=== PATIENT | female | born 1980 | race Caucasian/White ===

== ENCOUNTER 2018-07-07 00:13 | Outpatient (CLI) | payer OTHER, SELFPAY ==
--- NOTE | 2018-07-07 13:09 | DI.US_ITS ---
SYMPTOMS/DIAGNOSIS: INTRAUTERINE CONTRACEPTIVE DEVICE THREADS LOST, T83.32XA PELVIC ULTRASOUND: Transabdominal and transvaginal examination was performed. The uterus measures 7.3 cm long x 3.6 cm AP x 5.2 cm transverse. The endometrial stripe is within normal limits at .4 cm. Note is made of an intrauterine device in good position within the canal. The right ovary measures 2.8 x 1.3 x 1.8 cm and is grossly unremarkable. There is normal blood flow. No evidence of torsion is present. The left ovary measures 3.7 x 2.8 x 3.2 cm. There are small follicular cysts. The largest measures 2.1 cm. No suspicious solid masses are seen sonographically. There is normal blood flow to the left ovary. No torsion is present. No evidence of free pelvic fluid or hydronephrosis is identified. IMPRESSION: Intrauterine device in good position within the endometrial canal. Otherwise negative examination.
== END 2018-07-07 00:33 ==
PROVIDERS: PCP Family Medicine; Visit Provider Family Medicine
DX: T83.32XA Displacement of intrauterine contraceptive device, initial encounter (principal)
CPT/HCPCS: 76830; 76856

== ENCOUNTER 2018-07-19 00:53 | Outpatient (CLI) | payer OTHER, SELFPAY ==
[2018-07-19] MEDS: Gadoterate meglumine 20 ML VIAL 16 ML IVP (14:33)
--- NOTE | 2018-07-19 14:45 | DI.MRI_ITS ---
SYMPTOMS/DIAGNOSIS: RECURRENT HEADACHE, R51 MRI OF THE BRAIN: Pre and post contrast examination was performed. There are no priors for comparison. There is normal signal in the brain parenchyma. The ventricles are intact. The basilar cisterns are patent. There is no acute midline shift or mass effect. The diffusion weighted images are unremarkable. No evidence of intracranial hemorrhage is present. Following contrast administration no enhancing masses are appreciated. There is a normal flow void present in the [place]. The visualized paranasal sinuses are clear. The orbits and retro-orbital soft tissues are unremarkable. The pituitary gland is unremarkable. IMPRESSION: Negative MRI of the brain.
== END 2018-07-19 01:13 ==
PROVIDERS: PCP Family Medicine; Visit Provider Family Medicine
DX: R51 Headache (principal)
CPT/HCPCS: 70553

== ENCOUNTER 2018-11-10 00:29 | Outpatient (CLI) | payer BC, SELFPAY ==
--- NOTE | 2018-11-10 14:00 | DI.US_ITS ---
Many abnormalities cannot be diagnosed. A normal exam does not exclude a congenital anomaly. Radiology No. LMP: 09/14/18 Exam Date: 11/10/18 [facility] wks days on EDC ([facility]) 06/21/19 Confirmed: HISTORY: AMENORRHEA, N91.2 PREDICTED GESTATIONAL AGE NUMBER 8.1 weeks with a range of 7.1 week to 9.1 weeks. 1 Determined by___1STUS___LMP___HISTORY Info. pertaining to fetus # PLACENTA PRESENTATION Grade Cephalic___ Anterior___Posterior___ Breech____ Right Left Transverse(head right___ Fundal___Low-lying___Previa___ Transverse(head left___ Varying BIOMETRY AMNIOTIC FLUID BPD: mm weeks Normal HC: mm weeks AC: mm weeks FL: mm weeks AMNIOTIC FLUID INDEX >26 WK CRL: 20 mm 8.4 weeks Cisterna Magna: mm CI: RUQ: LUQ Cerebellum: cm EFW: grams Percentile RLQ: LLQ Total: cms Composite AGE= 8.4 wks EDC by US____06/18/19 BIOPHYSICAL PROFILE ANATOMY IDENTIFIED SCORE 0/2 Heart: 4-Chamber___Rate:[id number]____ LVOT: RVOT: Amniotic Fluid(>2cms)____ Stomach: Kidneys: Respirations (>30 secs) Bladder: Post. Fossa: Body Flex/Extension 3 vessel cord: Ventricles: cord insertion: Lips:____ Extremity Flex/Extension spinal morphology: Nose: Total Score= Palate: NS=not seen There is a single living intrauterine gestation. Estimated sonographic age based on crown rump length is 8 weeks 4 days. heart rate is 168 beats per minute. yolk sac was visualized. The right ovary measures 2.8 by 2.1 by 2 cm. There is a 2.2 by 1.8 by 2 cm. simple cyst on the right ovary. There is normal blood flow to the right ovary. The left ovary measures 3.3 by 1.9 by 1.9 cm. There is normal blood flow. Small follicular cysts are present. IMPRESSION: Single living intrauterine gestation. Estimated sonographic age is 8 weeks 4 days.
== END 2018-11-10 00:49 ==
PROVIDERS: PCP Family Medicine; Visit Provider Family Medicine
DX: Z34.91 Encounter for supervision of normal pregnancy, unspecified, first trimester (principal); N83.291 Other ovarian cyst, right side
CPT/HCPCS: 76801

== ENCOUNTER 2018-11-29 09:33 | Outpatient (CLI) | payer BC, SELFPAY ==
[2018-11-29 09:38] LABS: Kit/Specimen SENT
== END 2018-11-29 09:53 ==
PROVIDERS: PCP Family Medicine; Visit Provider Family Medicine
DX: O09.521 Supervision of elderly multigravida, first trimester (principal); Z34.81 Encounter for supervision of other normal pregnancy, first trimester
CPT/HCPCS: 36415

== ENCOUNTER 2019-02-09 02:17 | Outpatient (CLI) | payer BC, SELFPAY ==
--- NOTE | 2019-02-09 16:52 | DI.US_ITS ---
Predicted Gestational Age: Indication/History: SURVEY 21.1 Wks Range: 20.1 to 22.1 Prior US done on: Determined by: First US LMP History EDC by prior US: 06/21/19 For multiple gestations: Baby PLACENTA: Grade: 0-1 Location: Anterior X Posterior PRESENTATION: RT LT LOW LYING PREVIA Cephalic Trans (Head RT LT ) Varied X Breech BIOMETRY: Anatomy Identified: BPD: 54 mm 22.3 wks 4 chamber Heart X Heart Rate 153 BPM HC: 198 mm 22 wks LVOT X Post Fossa X AC: 164 mm 21.3 wks RVOT X Ventricles X FL: 37 mm 21.6 wks Stomach X Nose X Bladder X Lips X Cisterna Magna: 4.1 mm CI: 86.5 Kidneys X Palate X Cerebellum: 2.2 mm 3 vessel cord X Spine X EFW: 445 grms 75th % Cord Insertion X NS= not seen Composite Age (US) 22 wks Many abnormalities cannot be diagnosed. A normal exam does not exclude congenital abnormality. EDC by US 06/15/19 Amniotic Fluid Index: Normal COMMENTS: RUQ: LUQ: RLQ: LLQ: Total: cm Biophysical Profile: Score 0/2 VELASQUEZ (>2cm) Respirations (>30 sec) Body flexion/extension Extremity flexion/extension TOTAL SCORE There is a single living intrauterine gestation. Estimated sonographic age is 22 weeks. No or placental abnormalities are identified. Please refer to the OB ultrasound worksheet for complete details. IMPRESSION: Single living intrauterine gestation. Estimated sonographic age is 22 weeks.
== END 2019-02-09 02:37 ==
PROVIDERS: PCP Family Medicine; Visit Provider Midwife
DX: Z34.92 Encounter for supervision of normal pregnancy, unspecified, second trimester (principal)
CPT/HCPCS: 76805

== ENCOUNTER 2022-12-31 00:15 | Outpatient (CLI) | payer BC, SELFPAY ==
--- NOTE | 2022-12-31 | DI.MAMMO_ITS ---
Exam(s) MAMMO SCREENING EXAM: MAMMO SCREENING CLINICAL HISTORY: SCREENING, Z12.31 TECHNIQUE: Bilateral full field digital CC and MLO mammographic images were obtained with 3D tomosyn thesis and utilizing computer aided detection (CAD). COMPARISON: None. FINDINGS: Masses/Architectural Distortion: Partially obscured nodules are seen in the upper outer right breast. No areas of architectural distortion are seen. Microcalcifications: No suspicious pleomorphic-type are seen. Skin Thickening/Nipple Retraction: None. IMPRESSION: 1. Small partially obscured nodules are seen in the upper probably outer quadrant of the right breast . 2. Spot compression views are requested for further evaluation. Ultrasound may be indicated at that time. BI-RADS Category 0 - Assessment Incomplete: Need additional imaging evaluation Breast Density - Category B - Scattered areas of fibroglandular density Breast density category C or D implies that the patient has dense breast tissue. Dense breast tissue is very common and is not abnormal but dense breast tissue can make it harder to find cancer on a ma mmogram. Also, dense breast tissue may increase their breast cancer risk. This information about the result of the mammogram report was provided to the patient to raise their awareness. Use this report when you speak with the patient about their risks for breast cancer, which includes their family hist ory. At that time, you may recommend for more screening tests (Ultrasound or MRI) as they might be us eful based on their risk. A negative radiographic report should not delay biopsy if a dominant or clinically suspicious mass is present. Up to ten percent of cancers are not identified on mammography. A negative report may reinforce clinical impression. Adenosis and dense breasts may obscure an underlying neoplasm. False positive reports average 6 to 10%. Patient will receive a letter notifying them of these results.
== END 2022-12-31 00:35 ==
PROVIDERS: PCP Family Medicine; Visit Provider Family Medicine
DX: Z12.31 Encounter for screening mammogram for malignant neoplasm of breast (principal); R92.8 Other abnormal and inconclusive findings on diagnostic imaging of breast
CPT/HCPCS: 77063; 77067

== ENCOUNTER 2023-01-21 00:23 | Outpatient (CLI) | payer BC, SELFPAY ==
--- NOTE | 2023-01-21 | DI.MAMMO_ITS ---
Exam(s) MG MAMMO SCREEN CALL BACK UNI US BREAST RT COMPLETE EXAM: MG MAMMO SCREEN CALL BACK UNI and U/S breast RT complete CLINICAL HISTORY: F/U MAMMO, PARTIALLY OBSCURED NODULES UPPER OUTER QUAD RT BREAST. TECHNIQUE: Craniocaudal and mediolateral oblique Full Field Digital Mammography views of the right b reast with Computer Aided Diagnosis followed by Tomosynthesis and right breast ultrasound. COMPARISON: Comparison is made with baseline examination. FINDINGS: Mammography/Tomosynthesis: Masses/Architectural Distortion: On one of the spot MLO views, there is a question of an ovoid densit y present. It is not seen on additional MLO views or craniocaudad views. This does not appear to co rrespond to the initial baseline mammogram finding. Microcalcifictions: No suspicious pleomorphic-type are seen. Skin Thickening/Nipple Retraction: None. Complete right breast US: Echotexture: Normal appearance of the glandular tissue. Shadowing: No suspicious foci. Cyst: None. Solid lesions: At the 10 o'clock position of the right breast 10 cm from the nipple, there are 2 ovoi d hypoechoic nodules present. No posterior acoustic enhancement or shadowing is present. They measu re 6 mm and 5 mm maximally. Ductal dilation: None. IMPRESSION: 1. Two hypoechoic nodules at the 10 o'clock position of the right breast 10 cm from the nipple. One of these may correspond to a nodule seen in the upper outer quadrant of the right breast. Or in the outer right breast. 2. A 3 month follow-up right mammogram and right breast ultrasound is recommended for re-evaluation. 3. The findings were discussed with the patient on the date of the examination. BI-RADS Category 3 - Probably Benign Finding: Recommend follow-up imaging in 3 months Breast Density - Category B - Scattered areas of fibroglandular density Breast density Category C or D implies that the patient has dense breast tissue. Dense breast tissue can make it harder to find cancer on a mammogram. Dense breast tissue is also associated with an incr eased risk of breast cancer. This information about the result of the mammogram report was provided to the patient to raise their awareness. Use this report when you speak with the patient about their risks for breast cancer, which includes their family history. At that time, you may recommend additional screening tests (Ultrasoun d or MRI) as these tests may add significant information. A negative radiographic report should not delay biopsy if a dominant or clinically suspicious mass is present. Up to ten percent of cancers are not identified on mammography. A negative report may reinforce clinical impression. Adenosis and dense breasts may obscure an underlying neoplasm. False positive reports average 6 to 10%. Patient will receive a letter notifying them of these results.
== END 2023-01-21 00:43 ==
LOC: DI 00:23
PROVIDERS: PCP Family Medicine; Visit Provider Family Medicine
DX: N63.11 Unspecified lump in the right breast, upper outer quadrant (principal)
CPT/HCPCS: 76642; 77063; 77067

== ENCOUNTER 2024-11-16 00:07 | Outpatient (CLI) | payer OTHER, SELFPAY ==
--- NOTE | 2024-11-16 | DI.MAMMO_ITS ---
Exam(s) MAMMO SCREENING EXAM: MAMMO SCREENING CLINICAL HISTORY: SCREENING, Z12.39 TECHNIQUE: Bilateral full field digital CC and MLO mammographic images were obtained with 3D tomosyn thesis and utilizing computer aided detection (CAD). COMPARISON: Available for comparison. FINDINGS: Masses/Architectural Distortion: No suspicious nodules or areas of architectural distortion are prese nt. Microcalcifications: No suspicious pleomorphic-type are seen. Skin Thickening/Nipple Retraction: None. IMPRESSION: 1. No significant interval change with no specific features of malignancy noted. 2. Unless there is more urgent need, screening mammography is recommended, as per [employer] guidelines. BI-RADS Category 1 - Negative Breast Density - Category B - Scattered areas of fibroglandular density Breast density category C or D implies that the patient has dense breast tissue. Dense breast tissue is very common and is not abnormal but dense breast tissue can make it harder to find cancer on a ma mmogram. Also, dense breast tissue may increase their breast cancer risk. This information about the result of the mammogram report was provided to the patient to raise their awareness. Use this report when you speak with the patient about their risks for breast cancer, which includes their family hist ory. At that time, you may recommend for more screening tests (Ultrasound or MRI) as they might be us eful based on their risk. A negative radiographic report should not delay biopsy if a dominant or clinically suspicious mass is present. Up to ten percent of cancers are not identified on mammography. A negative report may reinforce clinical impression. Adenosis and dense breasts may obscure an underlying neoplasm. False positive reports average 6 to 10%. Patient will receive a letter notifying them of these results.
== END 2024-11-16 00:27 ==
PROVIDERS: PCP Family Medicine; Visit Provider Family Medicine
DX: Z12.31 Encounter for screening mammogram for malignant neoplasm of breast (principal); R92.323 Mammographic fibroglandular density, bilateral breasts
CPT/HCPCS: 77063; 77067